=== PATIENT | male | born 1950 | race Caucasian/White ===

== ENCOUNTER 2024-11-17 17:13 | Emergency (ER) | payer MEDICARE, OTHER, SELFPAY ==
[2024-11-17] VITALS (12 sets, daily range): BP systolic 104–154; BP diastolic 44–94; PULSE 56–89; RESP 16–25; TEMP 36.8; O2SAT 94–97; BMI 30.5
--- NOTE | 2024-11-17 17:14 | ECG_ITS ---
APPROVED REPORT Exam: Resting ECG HR:75 bpm ECG Measurements Heart Rate 75 AXES AR 164 P 61 QRSd 110 QRS 83 QT 395 T 57 QTc 423 Conclusion SINUS RHYTHM WITH OCCASIONAL SUPRAVENTRICULAR PREMATURE COMPLEXES LOW QRS VOLTAGE IN EXTREMITY LEADS [QRS DEFLECTION < 0.5 mV IN LIMB LEADS] ANTEROSEPTAL MYOCARDIAL INFARCTION , OF INDETERMINATE AGE [40+ ms Q WAVE IN V1-V4] ABNORMAL ECG UNCONFIRMED REPORT Electronically signed by : ODALYS JACKSON, 11/18/2024 05:39:21
--- NOTE | 2024-11-17 17:21 | CT_ITS ---
PROCEDURE INFORMATION: Exam: CTA Head With Contrast, Arteriography Exam date and time: 11/17/2024 6:07 PM Age: 73 years old Clinical indication: Syncope and collapse; Additional info: Syncope/seizure, history of stroke TECHNIQUE: Imaging protocol: Computed tomographic angiography of the head with contrast. Exam focused on the arteries. 3D rendering (Not supervised by radiologist): MIP and/or 3D reconstructed images were created by the technologist. Radiation optimization: All CT scans at this facility use at least one of these dose optimization techniques: automated exposure control; mA and/or kV adjustment per patient size (includes targeted exams where dose is matched to clinical indication); or iterative reconstruction. Contrast material: ISOVUE 370; Contrast volume: 80 ml; Contrast route: INTRAVENOUS (IV); COMPARISON: CT HEAD/BRAIN WO CON 11/17/2024 6:04 PM FINDINGS: ANTERIOR CIRCULATION: Right internal carotid artery: Intracranial segment is patent with no significant stenosis. No aneurysm. Right middle cerebral artery: No occlusion or significant stenosis. No aneurysm. Right anterior cerebral artery: No occlusion or significant stenosis. No aneurysm. Left internal carotid artery: Intracranial segment is patent with no significant stenosis. No aneurysm. Left middle cerebral artery: No occlusion or significant stenosis. No aneurysm. Left anterior cerebral artery: No occlusion or significant stenosis. No aneurysm. POSTERIOR CIRCULATION: Right vertebral artery: [id number] stenosis of the distal right vertebral artery. Left vertebral artery: No occlusion or significant stenosis. No aneurysm. Basilar artery: No occlusion or significant stenosis. No aneurysm. Right posterior cerebral artery: No occlusion or significant stenosis. No aneurysm. Left posterior cerebral artery: No occlusion or significant stenosis. No aneurysm. Brain: No definite mass, mass effect, or midline shift. Cerebral ventricles: No ventriculomegaly. Bones/joints: Unremarkable. No acute fracture. Soft tissues: Unremarkable. IMPRESSION: No significant intracranial arterial abnormality.
--- NOTE | 2024-11-17 17:21 | CT_ITS ---
PROCEDURE INFORMATION: Exam: CT Abdomen And Pelvis With Contrast Exam date and time: 11/17/2024 6:10 PM Age: 73 years old Clinical indication: Abdominal pain; Additional info: Syncope/presyncope, abdominal pain, n/v TECHNIQUE: Imaging protocol: Computed tomography of the abdomen and pelvis with contrast. Radiation optimization: All CT scans at this facility use at least one of these dose optimization techniques: automated exposure control; mA and/or kV adjustment per patient size (includes targeted exams where dose is matched to clinical indication); or iterative reconstruction. Contrast material: ISOVUE; Contrast volume: 80 ml; Contrast route: IV; COMPARISON: CT ANGIO CHEST PE PROTOCOL 11/17/2024 6:10 PM FINDINGS: Liver: Mild fatty infiltration of the liver. No focal liver abnormality appreciated. Gallbladder and biliary ducts: Surgical clips gallbladder fossa. Mild post cholecystectomy dilatation of the common duct. No intrahepatic ductal dilatation appreciated. Pancreas: Normal. No ductal dilation. Spleen: Normal. No splenomegaly. Adrenal glands: Normal. No mass. Kidneys and ureters: Normal-size kidneys which are excreting contrast. No hydronephrosis appreciated. Stomach and bowel: The stomach is mildly distended with gas and fluid with mild wall enhancement. No significant wall thickening appreciated. Proximal duodenal diverticulum. No small bowel distension or significant wall thickening appreciated. Advanced colonic diverticulosis. No acute diverticulitis identified. Appendix: Normal retrocecal appendix right lower quadrant. Intraperitoneal space: Unremarkable. No free air. No significant fluid collection. Vasculature: Advanced atherosclerotic plaquing abdominal aorta with mixed plaque. No aneurysm. Maximum luminal stenosis in the 40% range. 50-70% stenosis proximal superior mesenteric artery. Dense atherosclerotic plaquing at the origin of the renal arteries. Enlargement of the proximal right common iliac artery measuring 1.5 cm with an approximate 1.6 cm segmental occlusion. Reconstitution of flow within the distal right common iliac artery. Advanced atherosclerotic plaquing small caliber right external iliac artery with areas of narrowing. Partial occlusion right common femoral artery with reconstitution or flow that appears to be from collaterals of the proximal right superficial femoral artery. Advanced atherosclerotic plaquing left common iliac artery with a 70% or greater stenosis at the distal bifurcation. Atherosclerotic plaquing throughout the left external iliac artery. Narrowing greater than 50% of the origin of the left proximal superficial femoral artery. Lymph nodes: Unremarkable. No enlarged lymph nodes. Urinary bladder: Partially opacified bladder with mild diffuse wall thickening. The apex of the prostate indents the floor of the bladder. Reproductive: Moderate prostate enlargement. Small calcification proximal penis. Bones/joints: Unremarkable. No acute fracture. Soft tissues: Small bilateral fat containing inguinal hernias that extend to the upper scrotum. No obstructive hernia. IMPRESSION: 1. Advanced atherosclerotic vascular disease abdominal aorta, iliac and proximal femoral arteries with areas of significant narrowing and occlusion which is detailed above. 2. Mild diffuse bladder wall thickening. Correlation with urinalysis to assess for infection. 3. Possible mild gastritis. 4. Other findings above.
--- NOTE | 2024-11-17 17:21 | CT_ITS ---
PROCEDURE INFORMATION: Exam: CTA Neck With Contrast Exam date and time: 11/17/2024 6:07 PM Age: 73 years old Clinical indication: Other: Syncope/seizure, history of stroke TECHNIQUE: Imaging protocol: Computed tomographic angiography of the neck with contrast. Exam focused on the cervical segments of the vasculature. 3D rendering (Not supervised by radiologist): MIP and/or 3D reconstructed images were created by the technologist. Radiation optimization: All CT scans at this facility use at least one of these dose optimization techniques: automated exposure control; mA and/or kV adjustment per patient size (includes targeted exams where dose is matched to clinical indication); or iterative reconstruction. Contrast material: ISO 370; Contrast volume: 80 ml; Contrast route: INTRAVENOUS (IV); COMPARISON: CT ANGIO NECK 11/17/2024 6:07 PM FINDINGS: Right common carotid artery: Soft plaque in the right common carotid artery produces 45% stenosis per NASCET criteria. Right internal carotid artery: Patent right internal carotid arterial stent. Right external carotid artery: No occlusion or stenosis of the origin. Left common carotid artery: Soft plaque in the left common carotid artery produces at least 90% stenosis, possibly 99% stenosis example image 38 series 3. 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 There is a relatively large amount of intraarterial plaque/thrombus. Soft plaque of the left carotid bifurcation produces 40% stenosis of the internal carotid artery per NASCET criteria. Mild stenosis of the origin of the left common carotid artery. Left internal carotid artery: No stenosis of the extracranial segment. No dissection or occlusion. Left external carotid artery: No occlusion or stenosis of the origin. Right vertebral artery: Severe stenosis of the origin of the right vertebral artery. Left vertebral artery: Moderate stenosis of the origin of the left vertebral artery. Other arteries: Severe atheromatous disease of the arteries. Orbital cavities: Status post bilateral cataract surgery. Lymph nodes: Prominent bilateral intraparotid gland lymph nodes are noted. Soft tissues: Normal. No significant soft tissue swelling. Bones/joints: There is a cyst along the anterior aspect of the thyroid cartilage image 50 series 3. This is possibly a thyroglossal duct cyst. Lungs: Bilateral apical scarring. Pleural spaces: Tiny left apical pneumothorax. Other findings: Please see separate report for CT chest. IMPRESSION: 1. Soft plaque in the left common carotid artery produces at least 90% stenosis, possibly 99% stenosis example image 38 series 3. 2. 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 There is a relatively large amount of intraarterial plaque/thrombus. Soft plaque of the left carotid bifurcation produces 40% stenosis of the internal carotid artery per NASCET criteria. 3. Severe stenosis of the origin of the right vertebral artery. 4. Moderate stenosis of the origin of the left vertebral artery. 5. Tiny left apical pneumothorax. 6. THIS REPORT CONTAINS FINDINGS THAT MAY BE CRITICAL TO PATIENT CARE. The findings were verbally communicated via telephone conference with Ritchie Richards at 7:14 PM EDT on 11/17/2024. The findings were acknowledged and understood. COMMENTS: Consistent with the [employer]'s Incidental Findings Committee white paper (J Am Kami Radiol 2015): In patients aged 35 years and older with an incidental thyroid nodule equal to or greater than 1.[address], MRI or extrathyroidal US, further evaluation with dedicated thyroid US is recommended for patients with normal life expectancy and without comorbidities. For smaller nodules without suspicious features, no further evaluation or follow up is recommended. REFERENCES: NASCET CRITERIA. The degree of stenosis in the cervical segment of the internal carotid artery is based on NASCET criteria. Normal is no stenosis. Mild is less than 50% stenosis. Moderate is 50-69% stenosis. Severe is 70% to 99% stenosis. Total occlusion is no detectable patent lumen.
--- NOTE | 2024-11-17 17:21 | CT_ITS ---
PROCEDURE INFORMATION: Exam: CT Head Without Contrast Exam date and time: 11/17/2024 6:04 PM Age: 73 years old Clinical indication: Syncope and collapse; Additional info: Syncope/seizure, history of stroke TECHNIQUE: Imaging protocol: Computed tomography of the head without contrast. Radiation optimization: All CT scans at this facility use at least one of these dose optimization techniques: automated exposure control; mA and/or kV adjustment per patient size (includes targeted exams where dose is matched to clinical indication); or iterative reconstruction. COMPARISON: No relevant prior studies available. FINDINGS: Brain: Chronic bilateral basal ganglia lacunar infarctions. Right temporoparietal encephalomalacia and left temporal, parietal, and frontal encephalomalacia. Mild chronic brain volume loss and chronic small vessel ischemic changes. Cerebral ventricles: No ventriculomegaly. Paranasal sinuses: Mild mucosal thickening in the paranasal sinuses. Mastoid air cells: Tiny mastoid effusions. Orbital cavities: Status post bilateral cataract surgery. Bones: Unremarkable. No acute fracture. Soft tissues: Unremarkable. IMPRESSION: No acute intracranial findings. If there is high clinical concern for acute infarction, consider MRI for further evaluation. ASSESSMENT: ASPECTS score ([place] Stroke Program Early CT Score) is 10.
--- NOTE | 2024-11-17 17:21 | CT_ITS ---
PROCEDURE INFORMATION: Exam: CTA Chest With Contrast Exam date and time: 11/17/2024 6:10 PM Age: 73 years old Clinical indication: Other: Syncope; Additional info: Syncope/seizure, history of stroke TECHNIQUE: Imaging protocol: Computed tomographic angiography of the chest with contrast. Exam focused on the arteries. 3D rendering (Not supervised by radiologist): MIP and/or 3D reconstructed images were created by the technologist. Radiation optimization: All CT scans at this facility use at least one of these dose optimization techniques: automated exposure control; mA and/or kV adjustment per patient size (includes targeted exams where dose is matched to clinical indication); or iterative reconstruction. Contrast material: ISOVUE 370; Contrast volume: 80 ml; Contrast route: INTRAVENOUS (IV); COMPARISON: CT ANGIO NECK 11/17/2024 6:07 PM FINDINGS: Pulmonary arteries: No acute pulmonary embolus is identified. No enlargement of the main pulmonary artery is appreciated. There is a questionable subsegmental left lower lobe pulmonary embolus on axial image 79 which is felt to be the result of an adjacent pulmonary vein and motion rather than a true embolus. Aorta: Atherosclerotic plaquing thoracic aorta with no aneurysm or dissection appreciated. High-grade stenosis proximal left common carotid artery. At least moderate stenosis with poststenotic dilatation of the origin of the right subclavian artery. Thyroid: Atrophic thyroid with no thyroid mass. Lungs: There is a tiny left apical pneumothorax measuring approximately 4 mm in thickness. There is dependent atelectasis in the posterior lower lobes. No large focal area of consolidation is appreciated. Pleural spaces: There is mild biapical pleural thickening and scarring. Heart: The heart is not markedly enlarged. No pericardial fluid. Coronary arteries: Dense calcification distal left main coronary artery. Calcifications proximal LAD and circumflex artery. Lymph nodes: Partially calcified precarinal lymph node. Few additional central mediastinal and right hilar lymph nodes. Subcarinal noncalcified lymph node with a short axis diameter of 11 mm. No bulky adenopathy appreciated. Bones/joints: Unremarkable. No acute fracture. Soft tissues: Unremarkable. IMPRESSION: 1. No acute pulmonary embolus is identified. 2. No thoracic aortic aneurysm or dissection appreciated. Dense left-sided coronary artery disease. 3. High-grade greater than 95% stenosis left common carotid artery just above the thoracic inlet with soft plaque present. 4. Tiny left apical pneumothorax. 5. Other findings above. COMMENT: THIS REPORT CONTAINS FINDINGS THAT MAY BE CRITICAL TO PATIENT CARE. The exam findings were verbally communicated by me to Dr. Ritchie Richards via telephone conference at 7:18 PM EDT on 11/17/2024. The findings were acknowledged and understood.
--- NOTE | 2024-11-17 17:25 | [facility].EDGENADL ---
Discharge Plan Disposition Patient Disposition: Xfer Other Referrals Follow up/Referrals: Provider,Referral, MD [Primary Care Provider, Medical] - See instructions Clinical Impressions Clinical Impression: Pneumothorax, Syncope, Carotid artery stenosis, Elevated lactic acid level, Leukocytosis, Gastritis Instructions Patient Instructions: DI for Diarrhea and Traveler's Diarrhea in Adults, DI for Diarrhea and Traveler's Diarrhea in Children, DI for Nausea in Adults, DI for Nausea in Children Print Language Print Language: Maltese Discharge ED Provider: Ritchie Richards General Adult HPI General Chief complaint: Nausea/Vomiting/Diarrhea Stated complaint: N/V Time Seen by Provider: 11/17/24 17:16 Mode of Arrival: EMS Source of Information: Patient and EMS Description of Symptoms (Recalled from ER Triage Doc. by RN): Patient presents to ED via [facility] after a call out for a stroke and seizure like activity. EMS reports on arrival patient has NIH of 0 and no seizure like activity. EMS reports patient was dry heaving and vomiting on arrival. Patient states he usually gets all his care from [facility]. Poor historian, awaiting spouse for medical history. Patient is tender and distended in his abdomen. reports last BM yesterday. History of Present Illness HPI narrative: Prince Porter is a 73y male who presents to the emergency department via EMS for stroke and seizure-like activity. Per EMS report, patient has remained NIH of 0 during her transport with no seizure activity. They state that patient was found out in the driveway and was reportedly confused by significant other. No confusion was noted by EMS. Patient is complaining of abdominal pain. EMS notes the patient did have an episode of nausea and vomiting when they got him into the ambulance. They stated that he remained alert and oriented. Patient denies any history of abdominal surgeries. He does complain of abdominal pain and distention. He denies any chest pain or shortness of breath. He states that from his previous strokes, he is on a blood thinner and has some difficulty speaking at baseline. Related Data Allergies Allergy/AdvReac Type Severity Reaction Status Date / Time NO KNOWN ALLERGIES Allergy Uncoded 02/02/17 15:02 [facility] Disclaimer: The information contained in this section may have been updated after the patient was seen, as this information can be updated by other users. Social History Smoking Status: Current every day smoker alcohol intake: former current occupational status: previously employed Travel in the last 8 weeks?: None ROS Obtained: Yes Systems reviewed as appropriate & no additional complaints except as documented Physical Exam General General appearance: alert and in no apparent distress Head Head exam: atraumatic Eye Eye exam: Present normal appearance, PERRL and EOMI ENT ENT exam: Present normal external ear exam Neck Neck exam: Present full ROM Chest Chest inspection: Present symmetric chest wall rise Respiratory Respiratory exam: Present normal lung sounds bilaterally; Absent respiratory distress, wheezes or stridor Cardiovascular Cardiovascular exam: Present regular rate and normal rhythm Abdominal Exam Abdominal exam: Present soft, distention, tenderness and guarding; Absent rigidity exam: Present deferred Extremities Exam Extremities exam: Present normal inspection Back Exam Back exam: Present normal inspection Neurological Exam Neurological exam: Present alert, oriented X3, CN II-XII intact and motor sensory deficit (Mild weakness with plantarflexion of the right lower extremity but otherwise 5 out of 5 strength in all extremities. No sensory deficits.) Psychiatric Psychiatric exam: Present normal affect Skin Skin exam: Present warm and dry Medical Decision Making Medical Records Screening: Per USPSTF and CDC recommendations, given the prevalence of disease in our region, it is our hospital?s policy to screen for HIV and viral Hepatitis for all patients aged 18 and over and those with ongoing risk factors. [place] Inquiry Pt receiving controlled substance: No Vital Signs: 11/17/24 17:17 11/17/24 17:31 11/17/24 19:18 Temperature 98.2 F Temperature Source Oral Pulse Rate 73 75 Pulse Rate [Right Brachial] 74 Respiratory Rate 20 25 H 18 Blood Pressure 152/44 H 125/60 Blood Pressure [Right Arm] 154/71 H Blood Pressure Mean [Right Arm] 98 Blood Pressure Source [Right Arm] Automatic Cuff Blood Pressure Position [Right Arm] Sitting 02 Sat by Pulse Oximetry 94 L 95 96 Oxygen Delivery Method Nasal Cannula Oxygen Flow Rate (LPM) 2 11/17/24 19:31 Temperature Temperature Source Pulse Rate 76 Pulse Rate [Right Brachial] Respiratory Rate 20 Blood Pressure 119/94 H Blood Pressure [Right Arm] Blood Pressure Mean [Right Arm] Blood Pressure Source [Right Arm] Blood Pressure Position [Right Arm] 02 Sat by Pulse Oximetry 97 Oxygen Delivery Method Oxygen Flow Rate (LPM) Lab Data Lab Results 11/17/24 17:15: WBC 13.0 H, RBC 5.04, Hgb 14.5, Hct 44.5, MCV 88.3, MCH 28.8, MCHC 32.6, RDW 14.2, Plt Count 335, MPV 11.0 H, Neut % (Auto) 51.9, Lymph % (Auto) 33.4, Alexander % (Auto) 9.6 H, Eos % (Auto) 4.1, Baso % (Auto) 0.8, Neut # (Auto) 6.8, Lymph # (Auto) 4.4, Alexander # (Auto) 1.3 H, Eos # (Auto) 0.5 H, Baso # (Auto) 0.1, VBG pH 7.41, VBG pCO2 36.0, VBG pO2 95.9 H, VBG HCO3 22.2 L, VBG Total CO2 23.3, VBG O2 Saturation 97.5 H, VBG Base Excess -2.5 L, VBG Lactic Acid 3.9 H, Sodium 138, Potassium 4.2, Chloride 105, Carbon Dioxide 20 L, Anion Gap 17.2 H, BUN 12, Creatinine 1.20, Estimated Creat Clear 74, Estimated GFR 60, Est GFR ( Amer) 72, Glucose 140 H, Calcium 9.3, Phosphorus 3.2, Magnesium 2.3, Total Bilirubin 1.2, AST 30, ALT 25, Alkaline Phosphatase 136 H, Total Creatine Kinase 170, Troponin I < 0.01, C-Reactive Protein 4.6 H, NT-Pro-B Natriuret Pep 48.7, Total Protein 7.7, Albumin 4.6, Globulin 3.1, Albumin/Globulin Ratio 1.5, Lipase 91, HCV Ab DWAIN w/Rflx PCR Qn Negative, HIV Ag/Ab Combo Qual Negative 11/17/24 17:31: Chlamy pneumoniae PCR Not detected, Adenovirus (PCR) Not detected, B. pertussis DNA (PCR) Not detected, Coronavirus OC43 (PCR) Not detected, Coronavirus HKU1 (PCR) Not detected, Coronavirus 229E (PCR) Not detected, SARS-CoV-2 (PCR) Not detected, Coronavirus NL63 (PCR) Not detected, Human Metapneumovir PCR Not detected, Influenza A (H1) PCR Not detected, Influ A (H1N1/09) PCR Not detected, Influenza A (H3) PCR Not detected, Influenza Type A (PCR) Not detected, Influenza Type B (PCR) Not detected, M. pneumoniae (PCR) Not detected, Parainfluenza 1 (PCR) Not detected, Parainfluenza 2 (PCR) Not detected, Parainfluenza 3 (PCR) Not detected, Parainfluenza 4 (PCR) Not detected, RSV (PCR) Not detected, Entero/Rhino (PCR) Not detected 11/17/24 19:18: Urine Color Yellow, Urine Appearance Clear, Urine pH 7.5, Ur Specific [place] <= 1.005, Urine Protein Negative, Urine Glucose (UA) Negative, Urine Ketones Negative, Urine Blood Negative, Urine Nitrate Negative, Urine Bilirubin Negative, Urine Urobilinogen 0.2, Ur Leukocyte Esterase Negative, Urine RBC Occasional, Urine WBC 3-5, Ur Squamous Epith Cells Occasional, Urine Bacteria Trace 11/17/24 17:15 11/17/24 17:15 Orders (Tests/Meds): ED MEDICATIONS Generic Name Dose Route Start Last Admin Trade Name Freq PRN Reason Stop Dose Admin Sodium Chloride 10 ml 11/17/24 18:10 11/17/24 18:12 Sodium Chloride 0.9% 10ml Syr (Rad Only) IV 12/17/24 18:09 10 ml NEEDED PRN Administration Maintain IV Site Discontinued Medications Generic Name Dose Route Start Last Admin Trade Name Freq PRN Reason Stop Dose Admin Lactated Ringer's 500 mls @ 999 mls/hr 11/17/24 17:43 11/17/24 19:12 Lactated Ringer's 500ml IV 11/17/24 18:13 Infused .Q31M ONE Infusion Iopamidol 160 ml 11/17/24 18:10 11/17/24 18:12 Iopamidol-370 (76%);100ml Bottle IV 11/17/24 18:11 160 ml ONCE ONE Administration Sodium Chloride 100 ml 11/17/24 18:10 11/17/24 18:11 0.9 % Sodium Chloride 50 Ml Vial IV 11/17/24 18:11 100 ml ONCE ONE Administration ORDERS Category Date Time Status CT abdomen pelvis w con Stat Cat Scan 11/17/24 17:[address] angio chest PE protocol Stat Cat Scan 11/17/24 17:[address] angio head Stat Cat Scan 11/17/24 17:[address] angio neck Stat Cat Scan 11/17/24 17:[address] head/brain wo con Stat Cat Scan 11/17/24 17:21 Completed BNP [NT Pro Brain Natriuretic Pep.] Stat Lab 11/17/24 17:15 Completed CBC w/Auto Diff [Complete Blood Count Auto Diff] Stat Lab 11/17/24 17:15 Completed CK [Creatine Kinase] Stat Lab 11/17/24 17:15 Completed CMP [Comprehensive Metabolic Panel] Stat Lab 11/17/24 17:15 Completed CRP [C-Reactive Protein] Stat Lab 11/17/24 17:15 Completed Full Resp Panel w/COVID ([facility]) Routine Lab 11/17/24 17:31 Completed HIV Combo Stat Lab 11/17/24 17:15 Completed Hepatitis C Ab Qual. W/ RFX Stat Lab 11/17/24 17:15 Completed Lactic Acid Follow Up (RFLX 1) Stat Lab 11/17/24 21:33 Ordered Lactic Acid Stat Lab 11/17/24 21:07 Ordered Lipase Stat Lab 11/17/24 17:15 Completed Magnesium Stat Lab 11/17/24 17:15 Completed Phosphorous Stat Lab 11/17/24 17:15 Completed Troponin I Q3H Lab 11/17/24 23:30 Ordered Troponin I Stat Lab 11/17/24 17:15 Completed UA [Urinalysis and Microscopic] Stat Lab 11/17/24 19:18 Completed Blood Culture Stat Micro 11/17/24 17:42 Received VBG [Venous Blood Gas] Stat RT 11/17/24 17:15 Completed ECG Data Tracing #1: I reviewed this ECG and interpreted as documented below: Normal sinus rhythm. Very mild less than [address] elevation in V2 with downgoing QRS in the precordial leads. No STEMI Medical Decision Narrative: On arrival, patient is hypertensive with blood pressure 154/71, heart rate 74 bpm, breathing 20 times a minute. 94% on 2 L nasal cannula. Temperature 98.2 ?F. Physical exam, stated above, revealed alert but nontoxic-appearing male. He is GCS 15. He is moving all extremities. Cranial nerves II through XII intact. No cerebellar signs. Patient does have mild weakness with plantarflexion of the right lower extremity, however this is reportedly his baseline. Cardiopulmonary exam is unremarkable with breath sounds present bilaterally. Abdomen is diffusely tender with guarding and distention but not peritonitic. Patient's daughter, Lisa, arrived and I had a conversation with her at approximately 1735 and she stated that she was with him at the time. She states that she was washing his feet and cutting his toenails. She states that she had one of his feet up on her lap to help cut his toenails. She then noticed his other foot was shaking and she looked at him and he was pale with his eyes rolled back in his head. She states that he was alert but minimally responsive through this. She states that he has had these episodes in the past and had tilt table testing as well as cardiac catheterizations and it was determined that he has vasovagal syncopal episodes. She states that he overall seems back to his normal now. She states that the symptoms that she saw today were exactly consistent with his previous episodes of vasovagal syncope, although it has been a few years since that has happened. She notes that he is exclusively cared for at [facility]. She states that he chronically has mild right lower extremity weakness. Differential diagnosis includes, but is not limited to: Vasovagal syncope, cardiac syncope, vertebrobasilar insufficiency, stroke, electrolyte derangement, ACS, bowel obstruction, colitis, acute pancreatitis, pulmonary embolism, among others. The most morbid conditions were considered and workup was based on these. Workup in the emergency department included: CT head without contrast, CTA head and neck, CT chest PE protocol, CT abdomen pelvis with IV contrast, troponin, BNP, CBC, CRP, magnesium, phosphorus, lipase, VBG with lactate, urinalysis, CMP, CK, EKG, patient received 500 mL of crystalloid fluid prior to arrival and was given additional 500 cc. Patient's workup showed mild leukocytosis of 13, VBG with no acidosis or alkalosis, pCO2 normal at 36, bicarb 23.3, lactate elevated at 3.9. Anion gap is elevated 17.2, likely related to patient's elevated lactate. Electrolytes within normal limits. No ARTIS. Initial troponin less than 0.01. CRP is mildly elevated at 4.6. BNP normal at 48.7. Lipase normal at 91. Liver enzymes and bilirubin within normal limits. Urinalysis without evidence of infection. Negative full respiratory panel. CT imaging interpreted by me personally. Patient likely has mild gastritis and bladder wall thickening but no evidence of UTI on patient's urinalysis. He has advanced atherosclerotic vascular disease in the aorta, iliac and proximal femoral arteries as well as gastritis on CT imaging of the abdomen. Patient has no PE. No aortic dissection or aneurysm appreciated. Greater than 95%-99% stenosis in the left common carotid artery, tiny left apical pneumothorax. No acute intracranial findings. No significant intracranial artery abnormality. Given these findings, I discussed with family about the results. They do state the patient was told that he will need surgery to clear out the stenosis in his vessel but had to stop smoking first, however he has not done this. They are not aware that he had any pneumothorax previously. They state that patient has felt short of breath with ambulating recently. I discussed with him about options and potential transfer to the [facility] and they are in agreement to [facility]. Patient' syncope could be secondary to vasovagal syncope, with his significant history, however with his worsening stenosiss of the left common carotid, this could be playing a factor. Also with his left apical pneumothorax, ended being the weekend, I do feel that he would require monitoring and continued oxygen over the weekend. I discussed the patient's case with Dr. Celis at the [facility] at approximately 2109. I discussed findings of pneumothorax and carotid artery stenosis and laboratory findings. He stated that patient had a carotid scan back in April that showed only 50 to 60% occlusion. He accepted the patient for admission/transfer to telemetry bed. I discussed this with the family and they are in agreement with this plan. Will arrange ground transport for transfer to the [facility]. Critical Care Critical Care Time Critical Care Time: No
[2024-11-17 17:30] LABS: Hematocrit 44.5 % (42.0-52.0); Hemoglobin 14.5 g/dL (14.1-18.0); Immature Granulocytes % 0.2 %; Mean Corpuscular HGB Conc 32.6 g/dL (31.8-35.4); Mean Corpuscular Hemoglobin 28.8 pg (27.0-31.2); Mean Corpuscular Volume 88.3 fl (80-94); Nucleated Red Blood Cells % 0 %; Platelet Count 335 K/mm3 (142-424); Red Blood Count 5.04 M/mm3 (4.60-6.20); Red Cell Distribution Width-SD 45.1 fL; White Blood Count 13.0 K/mm3 (4.8-10.8)
[2024-11-17 17:32] LABS: VBG HCO3 22.2 mmol/L (23-30); VBG PCO2 36.0 mmol/L (35-51); VBG PH 7.41 mmol/L (7.31-7.41); VBG PO2 95.9 mmol/L (28-40)
[2024-11-17 17:34] LABS: Lactate Venous 3.9 mmol/L (0.4-2.0)
[2024-11-17 17:35] LABS: Adenovirus,PCR Not Detected (NotDetected); Chlamydophila Pneumoniae, PCR Not Detected (NotDetected); Coronavirus 19, PCR Not Detected (NotDetected); Coronovirus HKU1,PCR Not Detected (NotDetected); Influenza A, PCR Not Detected (NotDetected); Influenza AH1, 2009 Not Detected (NotDetected); Influenza AH1, PCR Not Detected (NotDetected); Influenza AH3,PCR Not Detected (NotDetected); Influenza B, PCR Not Detected (NotDetected); Mycoplasma Pneumoniae, PCR Not Detected (NotDetected); Parainfluenza 1, PCR Not Detected (NotDetected); Parainfluenza 2, PCR Not Detected (NotDetected); Parainfluenza 3, PCR Not Detected (NotDetected); Parainfluenza 4, PCR Not Detected (NotDetected)
[2024-11-17 17:36] LABS: Alanine Aminotransferase 25 U/L (12-78); Albumin Level 4.6 g/dl (3.5-5.0); Albumin/Globulin Ratio 1.5 (1.1-1.8); Alkaline Phosphatase 136 U/L (38-126); Anion Gap 17.2 mEq/L (5-15); Aspartate Amino Transferase 30 U/L (17-59); Bilirubin,Total 1.2 mg/dl (0.2-1.3); Blood Urea Nitrogen 12 mg/dl (9-20); Calcium 9.3 mg/dl (8.4-10.2); Carbon Dioxide 20 mmol/L (22.0-30.0); Chloride 105 mmol/L (98-107); Creatinine Clearance Estimated 74 mL/min (50-200); Creatinine,Serum 1.20 mg/dl (0.66-1.25); Estimated Glomerular Filt Rate 60 ml/min (>60); GFR (African American) 72 ML/MIN (>60); Globulin 3.1 g/dL (1.3-3.2); Glucose 140 mg/dl (74-100); Magnesium 2.3 mg/dl (1.6-2.3); Phosphorous 3.2 mg/dl (2.5-4.5); Potassium 4.2 mmoL/L (3.5-5.1); Sodium 138 mmol/L (136-145); Total Protein,Serum 7.7 g/dl (6.3-8.2)
[2024-11-17 17:41] LABS: C-Reactive Protein 4.6 mg/L (0-4)
[2024-11-17 17:44] LABS: Lipase 91 U/L (23-300)
[2024-11-17 17:45] LABS: Creatine Kinase 170 U/L (55-170)
[2024-11-17 17:48] LABS: NT Pro Brain Natriuretic Pep. 48.7 pg/mL (0-125)
[2024-11-17 17:51] LABS: Troponin I < 0.01 ng/ml (0.00-0.034)
[2024-11-17] MEDS: RINGERS SOLUTION,LACTATED 500 ML 999 ML IV (17:51)
[2024-11-17] MEDS: 0.9 % SODIUM CHLORIDE 50 ML VIAL 100 ML IV (18:11)
[2024-11-17] MEDS: IOPAMIDOL-370 (76%);100ML BOTTLE 160 ML IV (18:12)
[2024-11-17] MEDS: SODIUM CHLORIDE 0.9% 10ML SYR (RAD ONLY) 10 ML IV (18:12)
[2024-11-17 18:33] LABS: Hepatitis C Ab Qual. W/ RFX NEGATIVE (Negative)
[2024-11-17 19:21] LABS: Microscopic, Urine URINE MICROSCOPIC (MICROSCOPIC)
[2024-11-17 19:30] LABS: Bilirubin,Urine Negative (Negative); Color,Urine YELLOW (Yellow); Glucose,Urine (UA) Negative (Negative); Ketones,Urine Negative (Negative); Leukocyte Esterase,Urine Negative (Negative); PH,Urine 7.5 (5.0-8.5); Protein,Urine Negative (Negative); Specific Gravity, Urine <= 1.005 (1.005-1.030); Urobilinogen,Urine 0.2 EU/dl (0.2)
[2024-11-17 20:03] LABS: Bacteria,Urine Trace /lpf; RBC,Urine Occasional #/hpf (0-3); Squamous Epithelial Cell,Urine Occasional #/hpf (0-5)
--- NOTE | 2024-11-17 20:09 | PC.NURSE ---
Called [facility] about a patient transfer per Dr. Richards. They are going to call back when the doctor can speak.
[2024-11-17 21:33] LABS: Reflex Lactic Add Lactic Reflex
[2024-11-17 22:25] LABS: Lactic Acid Follow Up (RFLX 1) 1.4 mmol/L (0.7-2.1)
[2024-11-18] VITALS: BP 101/42; PULSE 52; RESP 17; O2SAT 95
[2024-11-18 01:03] VITALS: BP 108/41; PULSE 57; RESP 20; TEMP 36.8; O2SAT 96
== END 2024-11-18 01:04 | disposition other institution (70) ==
PROVIDERS: Emergency Provider Student in an Organized Health Care Education/Training Program
DX: J93.9 Pneumothorax, unspecified (principal); I65.22 Occlusion and stenosis of left carotid artery; R10.9 Unspecified abdominal pain; R74.02 Elevation of levels of lactic acid dehydrogenase [LDH]; K29.70 Gastritis, unspecified, without bleeding; R55 Syncope and collapse; D72.829 Elevated white blood cell count, unspecified; R11.2 Nausea with vomiting, unspecified; F17.210 Nicotine dependence, cigarettes, uncomplicated
CPT/HCPCS: 0223U; 70450; 70496; 70498; 71275; 74177; 80053; 81001; 82550; 82803; 83605; 83690; 83735; 83880; 84100; 84484; 85025; 86140; 86803; 87040; 87389; 93005; 99285; J7120; Q9967